=== PATIENT | female | born 1975 ===

== ENCOUNTER 2016-10-23 17:26 | Inpatient (IN) | payer OTHER ==
[2016-10-23] MEDS ORDERED: Sodium Chloride 0.9% 1,000 ML IV STA (18:29)
[2016-10-23] MEDS ORDERED: Iohexol 240 (50 ml) PO ONE (18:30)
--- NOTE | 2016-10-23 18:35 | ED PDOC ---
HPI: General Adult Time Seen by Provider: 10/23/16 18:20 Chief Complaint (Nursing): Fever History Per: Patient History/Exam Limitations: no limitations Onset/Duration Of Symptoms: Days (x 2) Have you had recent travel within the past 21 days to any of the following countries: [place], [place], [place] or [place]?: No Current Symptoms Are (Timing): Still Present Additional Complaint(s): Betty Blackburn is a 41 year old female, with no previous medical history, who presents to the ED with complaints of left flank pain ongoing for the past two days. Pt reports associated symptoms of body aches, coughing, nausea, lower abdominal pain and frequency in urination. Pt denies any chest pain, vomiting, leg pain, shortness of breath, dysuria or dyspnea. Pt states to self medicating with tylenol to alleviate the symptoms with the last dose being 12:00. Pt also states to having a "pelvic cyst". Pt denies any other medical complaints at this time. PMD: Dr. Villalba Past Medical History Reviewed: Historical Data, Nursing Documentation, Vital Signs Vital Signs: Last Vital Signs Temp 100.1 F H 10/23/16 18:30 Pulse 137 H 10/23/16 17:49 Resp 20 10/23/16 17:49 BP 136/95 H 10/23/16 17:49 Pulse Ox 100 10/23/16 18:57 - Medical History Other PMH: ovarian cyst - Family History Family History: States: Unknown Family Hx - Living Arrangements Living Arrangements: With Family - Home Medications Home Medications: Ambulatory Orders Medication Instructions Recorded No Known Home Med 10/23/16 - Allergies Allergies/Adverse Reactions: Allergies Allergy/AdvReac Type Severity Reaction Status Date / Time No Known Allergies Allergy Verified 10/23/16 17:49 Review of Systems ROS Statement: Except As Marked, All Systems Reviewed And Found Negative Constitutional: Positive for: Other (body aches) Cardiovascular: Negative for: Chest Pain Respiratory: Positive for: Cough. Negative for: Shortness of Breath, Other ( dyspnea) Gastrointestinal: Positive for: Nausea, Abdominal Pain (lower abdominal). Negative for: Vomiting, Diarrhea Genitourinary Female: Positive for: Frequency. Negative for: Dysuria Musculoskeletal: Positive for: Back Pain (left flank pain ). Negative for: Leg Pain Physical Exam - Reviewed Nursing Documentation Reviewed: Yes Vital Signs Reviewed: Yes - Physical Exam Appears: Positive for: Non-toxic, No Acute Distress Head Exam: Positive for: ATRAUMATIC, NORMAL INSPECTION, NORMOCEPHALIC Skin: Positive for: Normal Color, Warm, Dry Eye Exam: Positive for: Normal appearance, EOMI, PERRL ENT: Positive for: Normal ENT Inspection Cardiovascular/Chest: Positive for: Regular Rate, Rhythm, Tachycardia Respiratory: Positive for: Normal Breath Sounds. Negative for: Decreased Breath Sounds, Accessory Muscle Use, Crackles, Rales, Rhonchi, Wheezing, Respiratory Distress Gastrointestinal/Abdominal: Positive for: Bowel Sounds, Soft, Tenderness (LLQ). Negative for: Organomegaly, Mass, Distended, Guarding, Rebound Back: Positive for: L CVA Tenderness. Negative for: R CVA Tenderness, Vertebral Tenderness Extremity: Positive for: Normal ROM, Capillary Refill (< 2 seconds). Negative for: Tenderness, Pedal Edema, Calf Tenderness Neurologic/Psych: Positive for: Alert, Oriented - Laboratory Results Result Diagrams: 10/23/16 19:17 10/23/16 19:17 Interpretation Of Abn Labs: urine wbc 753; elevated blood wbc - ECG ECG: Positive for: Interpreted By Me, Viewed By Me ECG Rhythm: Positive for: Sinus Tachycardia O2 Sat by Pulse Oximetry: 100 (RA) Pulse Ox Interpretation: Normal - Radiology X-Ray: Interpreted by Me, Viewed By Me X-Ray Interpretation: No Acute Disease - Progress ED Course And Treament: 2335: Dr. Sy to take over care. Fu on CT. Getting antibiotics. Medical Decision Making Medical Decision Making: Initial Impression: URI R/O pylonephritis Initial plan: * VBG * CT Abd pelvis w/ PO & IV contrast * labs * magnesium * phosphorus * urine dipstick * urine * partial thromboplastin time * prothrombin time * CXR * IV NS 1,000 ml at 1,000 ml/hr * omnipaque * toradol * zofran * blood culture * urine culture * shovel logger * vital signs Q15 min * urinalysis * ED obs * reevaluation Scribe Attestation: Documented by Chitra Kline, acting as a scribe for Sandro Gunter MD. Provider Scribe Attestation: All medical record entries made by the Scribe were at my direction and personally dictated by me. I have reviewed the chart and agree that the record accurately reflects my personal performance of the history, physical exam, medical decision making, and the department course for this patient. I have also personally directed, reviewed, and agree with the discharge instructions and disposition. Disposition - Clinical Impression Clinical Impression: UTI (urinary tract infection) - Patient ED Disposition Is Patient to be Admitted: Transfer of Care - Disposition Disposition: Transfer of Care Disposition Time: 23:36 Condition: FAIR
[2016-10-23 19:21] LABS: BASO # 0.1 K/uL (0.0-0.2); BASO % 0.5 % (0.0-2.0); LYMPH # 1.7 K/uL (1.0-4.3); LYMPH % 12.3 % (20.0-40.0); MEAN CELL VOLUME 91.4 fl (81.0-99.0); MEAN CORPUSCULAR HEMOGLOBIN 30.2 pg (27.0-31.0); MEAN PLATELET VOLUME 9.2 fl (7.2-11.7); MONO # 1.4 K/uL (0.0-0.8); MONO % 9.8 % (0.0-10.0); NEUT % 77.4 % (50.0-75.0); RED CELL DISTRIBUTION WIDTH 13.3 % (11.5-14.5); WHITE BLOOD COUNT 14.2 K/uL (4.8-10.8)
[2016-10-23] MEDS ORDERED: Iohexol 240 (50 ml) ONE (19:25)
[2016-10-23 19:32] LABS: ALB/GLOB RATIO 1.1 (1.0-2.1); ALKALINE PHOSPHATASE 113 U/L (38-126); ALT/SGPT 23 U/L (9-52); AST/SGOT 36 U/L (14-36); BILIRUBIN,TOTAL 0.7 mg/dl (0.2-1.3); BLOOD UREA NITROGEN 9 mg/dl (7-17); CALCIUM 9.2 mg/dL (8.4-10.2); CARBON DIOXIDE 25 mmol/L (22-30); CHLORIDE 100 mmol/L (98-107); GFR AFRICAN-AMERICAN > 60; GLUCOSE,RANDOM 103 mg/dL (65-105); MAGNESIUM 2.1 MG/DL (1.6-2.3); PHOSPHOROUS 2.8 mg/dl (2.5-4.5); SODIUM 131 mmol/l (132-148); TOTAL PROTEIN 7.8 G/DL (6.3-8.2)
[2016-10-23 19:34] LABS: VENOUS BLOOD GAS BASE EXCESS 1.2 mmol/L (0.0-2.0); VENOUS BLOOD GAS PCO2 46 mmHg (40-60); VENOUS BLOOD PH 7.38 (7.32-7.43)
[2016-10-23 19:34] LABS: PARTIAL THROMBOPLASTIN TIME 31.9 SECONDS (23.3-32.5)
[2016-10-23 20:47] LABS: RBC URINE 1950 /hpf (0-3); URINE BACTERIA FEW (<OCC); URINE BILIRUBIN NEGATIVE (NEGATIVE); URINE BLOOD LARGE (NEGATIVE); URINE COLOR AMBER (YELLOW); URINE GLUCOSE (UA) NEG (Normal); URINE KETONE 80 mg/dL (NEGATIVE); URINE LEUKOCYTE ESTERASE MOD Leu/uL (Negative); URINE PROTEIN 100 mg/dL (NEGATIVE); URINE UROBILINOGEN 0.2-1.0 mg/dL (0.2-1.0); WBC URINE 753 /hpf (0-5)
[2016-10-23] MEDS ORDERED: Ciprofloxacin 400mg/200ml D5W 200 ML IVPB STA (22:42)
[2016-10-23] MEDS ORDERED: Sodium Chloride 0.9% 50 ML IV ONE (23:26)
[2016-10-23] MEDS ORDERED: Iohexol 300 100 ML IJ ONE (23:26)
--- NOTE | 2016-10-24 00:06 | ED PDOC ---
- Laboratory Results Result Diagrams: 10/23/16 19:17 10/23/16 19:17 - ECG O2 Sat by Pulse Oximetry: 100 (RA) Pulse Ox Interpretation: Normal Medical Decision Making Medical Decision Making: Receiving Sign Out: Patient signed out to me by Dr. Gunter pending CT follow up and final disposition. Scribe Attestation: Documented by Tigist Hall acting as a scribe for Anne Sy MD Provider Scribe Attestation: All medical record entries made by the Scribe were at my direction and personally dictated by me. I have reviewed the chart and agree that the record accurately reflects my personal performance of the history, physical exam, medical decision making, and the department course for this patient. I have also personally directed, reviewed, and agree with the discharge instructions and disposition. Disposition - Clinical Impression Clinical Impression: Pyelonephritis, Sepsis - POA Present On Arrival: None - Disposition Disposition: Hospitalized as Observation Patient Disposition Time: 18:30 Condition: SERIOUS ED OBSERVATION Date of observation admission: 10/23/16 Time of observation admission: 18:29 - Observation admission statement Patient is being placed in observation because:: Awaiting CT scan, bloodwork - Goals of Observation Goals of observation are:: CT results, lab results and final disposition - Progress Note Progress Note: 10/24/16 00:05 Pt endorsed to me by Dr. Gunter pending CT results and follow up. 10/24/16 00:54 CT AP IMPRESSION: Left pyelonephritis; cholecystectomy with segmental right intrahepatic biliary ductal dilatation, normal caliber common duct; 6 x 8 x 8 cm left adnexal cyst; basilar atelectasis; shotty adenopathy On reexamination, pt febrile with recurrence of flank pain. IVF and tylenol ordered. DW Dr Chapa for hospitalization DW pt findings and plan of care.
--- NOTE | 2016-10-24 00:21 | CT ---
EXAM: CT Abdomen and Pelvis With Intravenous Contrast. CLINICAL HISTORY: 41 years old, female; Pain; Abdominal pain; Flank; Right; Prior surgery; Surgery date: 6+ months; Surgery type: Appendectomy. Gall bladder removed; Additional info: Abd pain. Fever TECHNIQUE: Axial computed tomography images of the abdomen and pelvis with intravenous contrast. This CT exam was performed using one or more of the following dose reduction techniques: automated exposure control, adjustment of the mA and/or kV according to patient size, and/or use of iterative reconstruction technique. Coronal and sagittal reformatted images were created and reviewed. CONTRAST: 95 mL of [id number] administered intravenously. EXAM DATE/TIME: 10/23/2016 6:30 PM COMPARISON: There are no prior studies for comparison. FINDINGS: Lower thorax: Heart size is at the upper limits of normal. There is minimal dependent atelectasis at the lung bases. ABDOMEN: Liver: There is fatty infiltration of the liver. Gallbladder and bile ducts: Gallbladder is surgically absent. Common bile duct is unremarkable. There is intrahepatic biliary ductal dilatation in the posterior medial aspect of the right lobe of the liver. Pancreas: unremarkable Spleen: unremarkable Adrenals: unremarkable Kidneys and ureters: There is a low attenuation right renal lesion too small to characterize. Right kidney and ureter are otherwise unremarkable. There are patchy perfusion defects in the left kidney. There is mild left perinephric stranding. There is mild pelvo-ureterectasis. There is enhancement of left renal pelvic and ureteral mucosa. There are no renal or ureteral stones Stomach and bowel: Stomach is incompletely distended. Rotation is normal. Proximal small bowel loops are mildly distended with air-fluid levels. Distention decreases distally. There is no obstruction. Terminal ileum is unremarkable. Appendix is not visualized.Colon is incompletely distended which limits evaluation. Appendix: Appendectomy PELVIS: Bladder: Bladder is partially distended. Reproductive: Uterus and right adnexal structures are unremarkable. There is a 6.1 x 8.3 x 8.3 cm left adnexal cyst ABDOMEN and PELVIS: Intraperitoneal space: There is no free air. There is no significant fluid. Bones/joints: There are no acute osseous abnormalities Soft tissues: There is a fat-containing umbilical hernia. Vasculature: Vascular structures are unremarkable. Lymph nodes: There is shotty para-aortic adenopathy. IMPRESSION: Left pyelonephritis; cholecystectomy with segmental right intrahepatic biliary ductal dilatation, normal caliber common duct; 6 x 8 x 8 cm left adnexal cyst; basilar atelectasis; shotty adenopathy Additional findings as described above.
[2016-10-24] MEDS ORDERED: Ciprofloxacin 400mg/200ml D5W 0 ML IVPB ONE (01:15)
[2016-10-24] MEDS ORDERED: cefTRIAXone (Rocephin) 1 gm Inj ONE (01:22)
[2016-10-24] MEDS ORDERED: Sodium Chloride 0.9% 1,000 ML IV STA (03:54)
[2016-10-24] MEDS: Sodium Chloride 0.9% 1,000 ML IV SCH (05:30)
[2016-10-24 06:44] LABS: HEMATOCRIT 34.8 % (34.0-47.0); MEAN CELL VOLUME 91.9 fl (81.0-99.0); MEAN CORPUSCULAR HEMOGLOBIN 30.6 pg (27.0-31.0); MEAN CORPUSCULAR HGB CONC 33.3 g/dL (33.0-37.0); RED CELL DISTRIBUTION WIDTH 13.2 % (11.5-14.5)
[2016-10-24 07:04] LABS: ALKALINE PHOSPHATASE 98 U/L (38-126); ALT/SGPT 20 U/L (9-52); AST/SGOT 34 U/L (14-36); BILIRUBIN,TOTAL 0.4 mg/dl (0.2-1.3); BLOOD UREA NITROGEN 6 mg/dl (7-17); CALCIUM 8.1 mg/dL (8.4-10.2); CARBON DIOXIDE 25 mmol/L (22-30); CHLORIDE 105 mmol/L (98-107); CHOLESTEROL 150 mg/dL (0-199); GFR AFRICAN-AMERICAN > 60; GLUCOSE,RANDOM 120 mg/dL (65-105); POTASSIUM 3.2 MMOL/L (3.6-5.0); SODIUM 134 mmol/l (132-148); TOTAL PROTEIN 6.3 G/DL (6.3-8.2)
[2016-10-24 07:17] LABS: T4 5.95 ug/dl (5.5-11.0)
[2016-10-24 07:30] LABS: THYROID STIMULATING HORMONE 2.42 mIU/ML (0.46-4.68)
[2016-10-24] MEDS: Enoxaparin 40 mg Syringe SC SCH (09:06)
--- NOTE | 2016-10-24 11:52 | RAD ---
HISTORY: Sepsis Patient COMPARISON: No prior. FINDINGS: LUNGS: No active pulmonary disease. PLEURA: No significant pleural effusion identified, no pneumothorax apparent. CARDIOVASCULAR: Normal. OSSEOUS STRUCTURES: No significant abnormalities. VISUALIZED UPPER ABDOMEN: Normal. OTHER FINDINGS: None. IMPRESSION: Suboptimal study due to portable technique and patient's body habitus. No definite evidence of focal infiltrate or consolidation in the lungs.
[2016-10-24] MEDS ORDERED: Potassium Chloride 20 mEq ER Tab PO ONE (13:10)
--- NOTE | 2016-10-24 18:43 | HP ---
CHIEF COMPLAINT: Fever, back pain and urinary symptoms. HISTORY OF PRESENT ILLNESS: This is a 41-year-old female without significant past medical history wh o was having urinary symptoms, left flank pain and high fever associated with nausea, generalized mal aise, body aches. The patient was brought to Emergency Room and was found to have pyelonephritis and was admitted for further management. REVIEW OF SYSTEMS: Positive for fever, malaise, generalized weakness, back pain, flank pain, urinary frequency, urgency and burning. Review of systems otherwise is negative for headache, dizziness, sy ncope, loss of consciousness, chest pain, shortness of breath, nausea, vomiting, constipation, any ne w joint or extremity pain. Review of systems of all other organ systems is unremarkable. PAST MEDICAL HISTORY: Unremarkable. PAST SURGICAL HISTORY: Remarkable for ovarian cyst. PERSONAL HISTORY: The patient is currently a nonsmoker, nondrinker, no substance abuse. MEDICATIONS: The patient is not on any medications. ALLERGIES: The patient is not allergic to any medication. FAMILY HISTORY: Noncontributory. PHYSICAL EXAMINATION: GENERAL: Well-built, well-nourished, overweight 41-year-old female in no acute distress. VITAL SIGNS: Temperature 102.2, pulse 100, respirations 22, blood pressure 134/76, saturation 98%. HEENT: Pupils reacting to light. NECK: No JVD, no thyromegaly, no lymphadenopathy, no nystagmus. Normocephalic, atraumatic skull. HEART: S1, S2 normal, regular. No significant murmur, gallop or rub is heard. LUNGS: Shows good bilateral air exchange. No rales or rhonchi. ABDOMEN: Soft, nontender, no organomegaly, no fluid. Bowel sounds are plus. No sign of acute abdom en. No guarding, no rigidity, no rebound. Distinct flank tenderness. There is also suprapubic tend erness. EXTREMITIES: No edema, no calf swelling, no tenderness, no acute ischemia. CENTRAL NERVOUS SYSTEM: The patient is alert, awake, oriented x 3. There is no sign of any acute gr oss focal motor or sensory neurological deficit. DIAGNOSTIC DATA: Available diagnostic data reviewed. WBC of 14.2, hemoglobin 12.6, hematocrit 38.6, platelet 243. Venous blood gas shows pH 7.38, pO2 of 18, pCO2 of 46, sodium 131, potassium 4.0, chl oride 100, bicarbonate 25, BUN 9, creatinine 0.5. SMA-12 is unremarkable. Urinalysis is consistent with urinary tract infection. CAT scan of abdomen shows left pyelonephritis. EKG shows normal sinus rhythm without any acute ST-T changes. ADMITTING IMPRESSION: Acute left pyelonephritis, questionable sepsis, overweight. PLAN: As ordered. Case and plan discussed with patient. Marshall Chapa MD cc: [id number] TT: 10/24/2016 18:43:18 rn
--- NOTE | 2016-10-24 19:55 | CARD ---
APPROVED REPORT EKG Measurement Heart [id number] <Conclusion> Sinus tachycardia Possible Left atrial enlargement Borderline ECG
[2016-10-25] MEDS: Sodium Chloride 0.9% 1,000 ML IV SCH (01:26)
[2016-10-25 06:49] LABS: BASO # 0.1 K/uL (0.0-0.2); BASO % 0.7 % (0.0-2.0); EOS % 0.2 % (0.0-4.0); HEMATOCRIT 33.3 % (34.0-47.0); LYMPH # 1.6 K/uL (1.0-4.3); LYMPH % 18.6 % (20.0-40.0); MEAN CELL VOLUME 90.6 fl (81.0-99.0); MEAN CORPUSCULAR HEMOGLOBIN 31.1 pg (27.0-31.0); MEAN CORPUSCULAR HGB CONC 34.3 g/dL (33.0-37.0); MEAN PLATELET VOLUME 9.2 fl (7.2-11.7); MONO % 12.2 % (0.0-10.0); NEUT # 5.8 K/uL (1.8-7.0); NEUT % 68.3 % (50.0-75.0); NRBC % 0.1 % (0.0-0.0); WHITE BLOOD COUNT 8.6 K/uL (4.8-10.8)
[2016-10-25 07:22] LABS: BLOOD UREA NITROGEN 6 mg/dl (7-17); CALCIUM 8.4 mg/dL (8.4-10.2); CARBON DIOXIDE 23 mmol/L (22-30); CHLORIDE 105 mmol/L (98-107); GFR AFRICAN-AMERICAN > 60; GLUCOSE,RANDOM 103 mg/dL (65-105); SODIUM 133 mmol/l (132-148)
[2016-10-25] MEDS: Enoxaparin 40 mg Syringe SC SCH (08:31)
[2016-10-25] MEDS: Cefepime 1 GM in Sodium Chloride 0.9% 100 ML IVPB SCH ×2 (11:36→18:20)
--- NOTE | 2016-10-25 13:33 | CP.PCM.PN ---
Subjective - Date & Time of Evaluation Date of Evaluation: 10/25/16 Time of Evaluation: 08:40 - Subjective Subjective: pt seen and evaluated at bedside, doing better compared to when she first came to ED. does not have any complaints Objective - Vital Signs/Intake and Output Vital Signs (last 24 hours): Temp Pulse Resp BP Pulse Ox 98.9 F 91 H 20 106/69 96 10/25/16 09:29 10/25/16 08:10 10/25/16 08:10 10/25/16 08:10 10/25/16 08:10 - Medications Medications: Current Medications Acetaminophen (Tylenol 325mg Tab) 650 mg PO Q6 PRN PRN Reason: Pain, severe (8-10) Acetaminophen (Tylenol 325mg Tab) 650 mg PO Q6 PRN PRN Reason: Fever >100.4 F Last Admin: 10/25/16 08:29 Dose: 650 mg Enoxaparin Sodium (Lovenox) 40 mg SC DAILY FAUSTINO PRN Reason: Protocol Last Admin: 10/25/16 08:31 Dose: 40 mg Ceftriaxone Sodium 1 gm/ (Sodium Chloride) 100 mls @ 200 mls/hr IVPB Q12 FAUSTINO Last Admin: 10/25/16 08:30 Dose: 200 mls/hr Cefepime HCl 1 gm/ Sodium (Chloride) 100 mls @ 100 mls/hr IVPB BID FAUSTINO Last Admin: 10/25/16 11:36 Dose: 100 mls/hr Ibuprofen (Motrin Tab) 600 mg PO Q6 PRN PRN Reason: Pain, moderate (4-7) Last Admin: 10/24/16 14:27 Dose: 600 mg - Labs Labs: 10/25/16 05:45 10/25/16 05:45 PT 12.4 SECONDS (9.6-11.2) H 10/23/16 19:17 INR 1.19 (0.92-1.08) H 10/23/16 19:17 APTT 31.9 SECONDS (23.3-32.5) 10/23/16 19:17 - Constitutional Appears: Non-toxic, No Acute Distress - Eye Exam Eye Exam: Normal appearance - Respiratory Exam Respiratory Exam: Clear to Ausculation Bilateral, NORMAL BREATHING PATTERN - Cardiovascular Exam Cardiovascular Exam: REGULAR RHYTHM, +S1, +S2 - GI/Abdominal Exam GI & Abdominal Exam: Soft, Normal Bowel Sounds - Extremities Exam Extremities Exam: Full ROM - Back Exam Back Exam: CVA tenderness (L) - Neurological Exam Neurological Exam: Alert, Awake, CN II-XII Intact Assessment and Plan - Assessment and Plan (Free Text) Assessment: 41 y/o female admitted for sepsis due to phlonephritis Plan: Sepsis due to Pylonephritis ID consulted' continue antibiotics pain medications as ordered diet- Regular DVT prophylaxis- Lovenox SC
[2016-10-26] MEDS: Cefepime 1 GM in Sodium Chloride 0.9% 100 ML IVPB SCH ×2 (08:39→16:34)
[2016-10-26] MEDS: Enoxaparin 40 mg Syringe SC SCH (08:43)
--- NOTE | 2016-10-26 13:24 | CP.PCM.CON ---
History of Present Illness - History of Present Illness History of Present Illness: 41 year old female, with no previous medical history, who presents to the ED with complaints of left flank pain ongoing for the past two days. Pt reports associated symptoms of body aches, coughing, nausea, lower abdominal pain and frequency in urination. Pt denies any chest pain, vomiting, leg pain, shortness of breath, dysuria or dyspnea. Pt states to self medicating with tylenol to alleviate the symptoms with the last dose being 12:00. Pt also states to having a "pelvic cyst". Pt denies any other medical complaints at this time. Review of Systems - Constitutional Constitutional: Fever, Malaise - EENT Eyes: absent: As Per HPI, Blind Spots, Blurred Vision, Change in Vision, Decreased Night Vision, Diplopia, Discharge, Dry Eye, Exophthalmos, Floaters, Irritation, Itchy Eyes, Loss of Peripheral Vision, Pain, Photophobia, Requires Corrective Lenses, Sees Flashes, Spots in Vision, Tunnel Vision, Other Visual Disturbances, Loss of Vision, Other Ears: absent: As Per HPI, Decreased Hearing, Ear Discharge, Ear Pain, Tinnitus, Abnormal Hearing, Disequilibrium, Dizziness, Other Nose/Mouth/Throat: absent: As Per HPI, Epistaxis, Nasal Congestion, Nasal Discharge, Nasal Obstruction, Nasal Trauma, Nose Pain, Post Nasal Drip, Sinus Pain, Sinus Pressure, Bleeding Gums, Change in Voice, Dental Pain, Dry Mouth, Dysphagia, Halitosis, Hoarsness, Lip Swelling, Mouth Lesions, Mouth Pain, Odynophagia, Sore Throat, Throat Swelling, Tongue Swelling, Facial Pain, Neck Pain, Neck Mass, Other - Breasts Breasts: absent: As Per HPI, Change in Shape, Mass, Pain, Nipple Discharge, Nipple Inversion, Skin Changes, Swelling, Other - Cardiovascular Cardiovascular: absent: As Per HPI, Acrocyanosis, Chest Pain, Chest Pain at Rest , Chest Pain with Activity, Claudication, Diaphoresis, Dyspnea, Dyspnea on Exertion, Edema, Irregular Heart Rhythm, Pain Radiating to Arm/Neck/Jaw, Leg Edema, Leg Ulcers, Lightheadedness, Orthopnea, Palpitations, Paroxysmal Nocturnal Dyspnea, Pedal Edema, Radiating Pain, Rapid Heart Rate, Slow Heart Rate, Syncope, Other - Gastrointestinal Gastrointestinal: absent: As Per HPI, Abdominal Pain, Belching, Bloating, Change in Bowel Habits, Change in Stool Character, Coffee Ground Emesis, Constipation, Cramping, Diarrhea, Dyspepsia, Dysphagia, Early Satiety, Excessive Flatus, Fecal Incontinence, Heartburn, Hematemesis, Hematochezia, Loose Stools, Melena, Nausea, Odynophagia, Temesmus, Vomiting, Other - Genitourinary Genitourinary: As Per HPI - Reproductive: Female Reproductive:Female: absent: As Per HPI, Amenorrhea, Amenorrhea/ Control, Currently Menstual, Cycle <21 Days, Cycle >35 Days, Cycle Variable, Menses 1-7 Days, Menses >/= 8 Days, Menses Variable, Cycle > 4 Weeks Between, No Menses for 6 Months, Heavy Menses, Light Menses, Normal Menses, Spotting Between Cycles , S/P Hysterectomy, Menopausal, Post Menopausal, Premenarche, Abnormal Vaginal Bleeding, Dysmenorrhea, Dyspareunia, Genital Lesions, Genital Pruritis, Pelvic Pain, Prolapse Symptoms, Sexual Dysfunction, Vaginal Discharge, Vaginal Dryness , Vaginal Odor, Vaginal Pruritis, Other - Menstruation Menstruation: absent: As Per HPI, Amenorrhea, Amenorrhea/ Control, Currently Menstual, Cycle <21 Days, Cycle >35 Days, Cycle Variable, Menses 1-7 Days, Menses >/= 8 Days, Menses Variable, Cycle > 4 Weeks Between, No Menses for 6 Months, Heavy Menses, Light Menses, Normal Menses, Spotting Between Cycles , S/P Hysterectomy, Menopausal, Post Menopausal, Premenarche, Abnormal Vaginal Bleeding, Dysmenorrhea, Other - Musculoskeletal Musculoskeletal: absent: As Per HPI, Abnormal Gait, Arthralgias, Atrophy, Back Pain, Deformity, Joint Swelling, Limited Range of Motion, Loss of Height, Muscle Cramps, Muscle Weakness, Myalgias, Neck Pain, Numbness, Radiating Pain into Limb, Stiffness, Tingling, Other - Integumentary Integumentary: absent: As Per HPI, Acne, Alopecia, Bleeding Lesions, Change in Hair, Change in Nails, Change in Pigmentation, Changing Lesions, Dry Skin, Erythema, Furuncle, Hirsutism, Lesions, New Lesions, Non-Healing Lesions, Photosensitivity, Pruritus, Rash, Skin Pain, Skin Ulcer, Sores, Striae, Swelling , Unusual Bruising, Wounds, Jaundice, Other - Neurological Neurological: absent: As Per HPI, Abnormal Gait, Abnormal Hearing, Abnormal Movements, Abnormal Speech, Behavioral Changes, Burning Sensations, Confusion, Convulsions, Disequilibrium, Dizziness, Numbness, Focal Weakness, Frequent Falls , Headaches, Lack of Coordination, Loss of Vision, Memory Loss, Paresthesias, Radicular Pain, Restless Legs, Sensory Deficit, Syncope, Tingling, Tremor, Vertigo, Weakness, Other Visual Disturbances, Other - Psychiatric Psychiatric: absent: As Per HPI, Abnormal Sleep Pattern, Anhedonia, Anxiety, Auditory Hallucinations, Behavioral Changes, Change in Appetite, Change in Libido, Confusion, Depression, Difficulty Concentrating, Hallucinations, Homicidal Ideation, Hopelessness, Irritability, Memory Loss, Mood Swings, Panic Attacks, Paranoia, Suicidal Ideation, Visual Hallucinations, Tactile Hallucinations, Other - Endocrine Endocrine: absent: As Per HPI, Change in Body Appearance, Change in Libido, Cold Intolorance, Deepening of Voice, Excessive Sweating, Fatigue, Flushing, Heat Intolorance, Increase in Ring/Shoe/Hat Size, Palpitations, Polydipsia, Polyphagia, Polyuria, Other - Hematologic/Lymphatic Hematologic: absent: As Per HPI, Easy Bleeding, Easy Bruising, Lymphadenopathy, Other Past Patient History - Past Medical History & Family History Past Medical History?: Yes - Past Social History Smoking Status: Never Smoked - CARDIAC Hx Cardiac Disorders: No - PULMONARY Hx Respiratory Disorders: No - NEUROLOGICAL Hx Neurological Disorder: No - HEENT Hx HEENT Problems: No - RENAL Hx Chronic Kidney Disease: No - ENDOCRINE/METABOLIC Hx Endocrine Disorders: No - HEMATOLOGICAL/ONCOLOGICAL Hx Blood Disorders: No - INTEGUMENTARY Hx Dermatological Problems: No - MUSCULOSKELETAL/RHEUMATOLOGICAL Hx Musculoskeletal Disorders: No Hx Falls: No - GASTROINTESTINAL Hx Gastrointestinal Disorders: No - GENITOURINARY/GYNECOLOGICAL Hx Genitourinary Disorders: No - PSYCHIATRIC Hx Psychophysiologic Disorder: No Hx Substance Use: No - SURGICAL HISTORY Hx Surgeries: Yes Other/Comment: Pelvic cyst - months ago - ANESTHESIA Hx Anesthesia: Yes Hx Anesthesia Reactions: No Hx Malignant Hyperthermia: No Has any member of the family had a problem w/ anesthesia?: No Meds Allergies/Adverse Reactions: Allergies Allergy/AdvReac Type Severity Reaction Status Date / Time No Known Allergies Allergy Verified 10/23/16 17:49 - Medications Medications: Current Medications Acetaminophen (Tylenol 325mg Tab) 650 mg PO Q6 PRN PRN Reason: Pain, severe (8-10) Last Admin: 10/25/16 17:13 Dose: 650 mg Acetaminophen (Tylenol 325mg Tab) 650 mg PO Q6 PRN PRN Reason: Fever >100.4 F Last Admin: 10/25/16 08:29 Dose: 650 mg Enoxaparin Sodium (Lovenox) 40 mg SC DAILY FAUSTINO PRN Reason: Protocol Last Admin: 10/26/16 08:43 Dose: 40 mg Cefepime HCl 1 gm/ Sodium (Chloride) 100 mls @ 100 mls/hr IVPB BID FAUSTINO Last Admin: 10/26/16 08:39 Dose: 100 mls/hr Ibuprofen (Motrin Tab) 600 mg PO Q6 PRN PRN Reason: Pain, moderate (4-7) Last Admin: 10/24/16 14:27 Dose: 600 mg Physical Exam - Constitutional Appears: Non-toxic, Chronically Ill - Head Exam Head Exam: ATRAUMATIC, NORMAL INSPECTION, NORMOCEPHALIC - Eye Exam Eye Exam: PERRL. absent: Scleral icterus - ENT Exam ENT Exam: Mucous Membranes Dry, Normal External Ear Exam - Neck Exam Neck exam: Negative for: Lymphadenopathy - Respiratory Exam Respiratory Exam: Decreased Breath Sounds, Clear to Auscultation Bilateral - Cardiovascular Exam Cardiovascular Exam: REGULAR RHYTHM, +S1, +S2 - GI/Abdominal Exam GI & Abdominal Exam: Diminished Bowel Sounds, Soft. absent: Tenderness - Rectal Exam Rectal Exam: Deferred - Exam Exam: NORMAL INSPECTION - Extremities Exam Extremities exam: Positive for: pedal pulses present. Negative for: calf tenderness, pedal edema, tenderness - Back Exam Back exam: CVA tenderness (L). absent: CVA tenderness (R), paraspinal tenderness - Neurological Exam Neurological exam: Alert, CN II-XII Intact, Oriented x3, Reflexes Normal - Psychiatric Exam Psychiatric exam: Normal Mood - Skin Skin Exam: Dry, Intact Results - Vital Signs Recent Vital Signs: Last Vital Signs Temp 98.6 F 10/26/16 08:16 Pulse 82 10/26/16 08:16 Resp 20 10/26/16 08:16 BP 118/83 10/26/16 08:16 Pulse Ox 98 10/26/16 08:16 - Labs Result Diagrams: 10/25/16 05:45 10/25/16 05:45 Assessment & Plan (1) Pyelonephritis Status: Acute (2) Sepsis Status: Acute (3) UTI (urinary tract infection) Status: Removed - Assessment and Plan (Free Text) Assessment: PYELO WITH E COLI CONT IV THEN PO RX FOR 2-3 WEEKS
--- NOTE | 2016-10-26 16:15 | CP.PCM.PN ---
Subjective - Date & Time of Evaluation Date of Evaluation: 10/26/16 Time of Evaluation: 09:00 - Subjective Subjective: pt seen and evaluated today complains about having a headache and feeling warm even though its cold but did not have any fever recorded in vitals. denies any abdominal pain, diarrhea, dysuria has improved. Doing better than previous days. Objective - Vital Signs/Intake and Output Vital Signs (last 24 hours): Temp Pulse Resp BP Pulse Ox 98.6 F 82 20 118/83 98 10/26/16 08:16 10/26/16 08:16 10/26/16 08:16 10/26/16 08:16 10/26/16 08:16 - Medications Medications: Current Medications Acetaminophen (Tylenol 325mg Tab) 650 mg PO Q6 PRN PRN Reason: Pain, severe (8-10) Last Admin: 10/25/16 17:13 Dose: 650 mg Acetaminophen (Tylenol 325mg Tab) 650 mg PO Q6 PRN PRN Reason: Fever >100.4 F Last Admin: 10/25/16 08:29 Dose: 650 mg Enoxaparin Sodium (Lovenox) 40 mg SC DAILY [facility] PRN Reason: Protocol Last Admin: 10/26/16 08:43 Dose: 40 mg Cefepime HCl 1 gm/ Sodium (Chloride) 100 mls @ 100 mls/hr IVPB BID [facility] Last Admin: 10/26/16 08:39 Dose: 100 mls/hr Ibuprofen (Motrin Tab) 600 mg PO Q6 PRN PRN Reason: Pain, moderate (4-7) Last Admin: 10/24/16 14:27 Dose: 600 mg - Labs Labs: 10/25/16 05:45 10/25/16 05:45 PT 12.4 SECONDS (9.6-11.2) H 10/23/16 19:17 INR 1.19 (0.92-1.08) H 10/23/16 19:17 APTT 31.9 SECONDS (23.3-32.5) 10/23/16 19:17 - Constitutional Appears: Non-toxic, No Acute Distress - Head Exam Head Exam: NORMOCEPHALIC - Eye Exam Eye Exam: Normal appearance, PERRL Pupil Exam: NORMAL ACCOMODATION - ENT Exam ENT Exam: Mucous Membranes Moist - Respiratory Exam Respiratory Exam: Clear to Ausculation Bilateral, NORMAL BREATHING PATTERN. absent: Rhonchi, Wheezes - Cardiovascular Exam Cardiovascular Exam: REGULAR RHYTHM, +S1, +S2 - GI/Abdominal Exam GI & Abdominal Exam: Soft, Normal Bowel Sounds. absent: Tenderness - Extremities Exam Extremities Exam: Normal Inspection. absent: Calf Tenderness - Back Exam Back Exam: NORMAL INSPECTION. absent: CVA tenderness (L), CVA tenderness (R), paraspinal tenderness - Neurological Exam Neurological Exam: Alert, Awake, CN II-XII Intact, Oriented x3 Assessment and Plan - Assessment and Plan (Free Text) Assessment: 41 y/o female admitted for sepsis due to pyelonephritis Plan: Sepsis due to Pyelonephritis ID recomendations appreciated continue antibiotics pain medications as ordered diet- Regular DVT prophylaxis- Lovenox SC
[2016-10-27 06:24] LABS: BASO % 0.6 % (0.0-2.0); EOS # 0.1 K/uL (0.0-0.7); EOS % 1.3 % (0.0-4.0); HEMATOCRIT 37.9 % (34.0-47.0); LYMPH # 1.8 K/uL (1.0-4.3); LYMPH % 30.8 % (20.0-40.0); MEAN CELL VOLUME 91.5 fl (81.0-99.0); MEAN CORPUSCULAR HEMOGLOBIN 30.7 pg (27.0-31.0); MEAN CORPUSCULAR HGB CONC 33.5 g/dL (33.0-37.0); MEAN PLATELET VOLUME 8.6 fl (7.2-11.7); MONO # 1.4 K/uL (0.0-0.8); MONO % 22.9 % (0.0-10.0); NEUT # 2.6 K/uL (1.8-7.0); NEUT % 44.4 % (50.0-75.0); NRBC % 0.2 % (0.0-0.0); PLATELET COUNT 313 K/uL (130-400); RED CELL DISTRIBUTION WIDTH 13.3 % (11.5-14.5); WHITE BLOOD COUNT 5.9 K/uL (4.8-10.8)
[2016-10-27 06:35] LABS: CHLORIDE 99 mmol/L (98-107); SODIUM 137 mmol/l (132-148)
[2016-10-27 06:36] LABS: POTASSIUM 4.1 MMOL/L (3.6-5.0)
[2016-10-27 06:38] LABS: CARBON DIOXIDE 29 mmol/L (22-30); GFR AFRICAN-AMERICAN > 60
[2016-10-27 06:39] LABS: BLOOD UREA NITROGEN 7 mg/dl (7-17); GLUCOSE,RANDOM 102 mg/dL (65-105)
[2016-10-27] MEDS: Cefepime 1 GM in Sodium Chloride 0.9% 100 ML IVPB SCH (08:53)
[2016-10-27] MEDS: Enoxaparin 40 mg Syringe SC SCH ×2 (08:53→09:00)
[2016-10-27 10:34] LABS: EOSINOPHIL 2 % (0-7); NEUTROPHIL 42 % (42-75); REACTIVE LYMPHOCYTES 8 % (0-0); TOTAL CELLS COUNTED 100
--- NOTE | 2016-10-27 12:12 | CP.PCM.DIS ---
Provider - Provider Date of Admission: 10/24/16 12:58 Attending physician: Marshall Chapa MD Primary care physician: Dr. Larkin Consults: ID Time Spent in preparation of Discharge (in minutes): 30 Diagnosis - Discharge Diagnosis (1) Pyelonephritis Status: Acute Hospital Course - Lab Results Lab Results: Most Recent Lab Values WBC 5.9 K/uL (4.8-10.8) 10/27/16 06:00 RBC 4.14 Mil/uL (3.80-5.20) 10/27/16 06:00 Hgb 12.7 g/dL (12.0-16.0) 10/27/16 06:00 Hct 37.9 % (34.0-47.0) 10/27/16 06:00 MCV 91.5 fl (81.0-99.0) 10/27/16 06:00 MCH 30.7 pg (27.0-31.0) 10/27/16 06:00 MCHC 33.5 g/dL (33.0-37.0) 10/27/16 06:00 RDW 13.3 % (11.5-14.5) 10/27/16 06:00 Plt Count 313 K/uL (130-400) 10/27/16 06:00 MPV 8.6 fl (7.2-11.7) 10/27/16 06:00 Neut % (Auto) 44.4 % (50.0-75.0) L 10/27/16 06:00 Lymph % (Auto) 30.8 % (20.0-40.0) 10/27/16 06:00 [place] % (Auto) 22.9 % (0.0-10.0) H 10/27/16 06:00 Eos % (Auto) 1.3 % (0.0-4.0) 10/27/16 06:00 Baso % (Auto) 0.6 % (0.0-2.0) 10/27/16 06:00 Neut # 2.6 K/uL (1.8-7.0) 10/27/16 06:00 Lymph # 1.8 K/uL (1.0-4.3) 10/27/16 06:00 [place] # 1.4 K/uL (0.0-0.8) H 03/16/17 06:00 Eos # 0.1 K/uL (0.0-0.7) 10/27/16 06:00 Baso # 0.0 K/uL (0.0-0.2) 10/27/16 06:00 Neutrophils % (Manual) 42 % (42-75) 10/27/16 06:00 Band Neutrophils % 2 % (0-2) 10/27/16 06:00 Lymphocytes % (Manual) 30 % (20-50) 10/27/16 06:00 Reactive Lymphs % 8 % (0-0) H 10/27/16 06:00 Monocytes % (Manual) 16 % (0-10) H 10/27/16 06:00 Eosinophils % (Manual) 2 % (0-7) 10/27/16 06:00 Platelet Estimate Normal (NORMAL) 10/27/16 06:00 RBC Morphology Normal (NORMAL) 10/27/16 06:00 PT 12.4 SECONDS (9.6-11.2) H 10/23/16 19: INR 1.19 (0.92-1.08) H 10/23/16 19: APTT 31.9 SECONDS (23.3-32.5) 10/23/16 19: pO2 18 mm/Hg (30-55) L 10/23/16 19: VBG pH 7.38 (7.32-7.43) 10/23/16 19:29 VBG pCO2 46 mmHg (40-60) 10/23/16 19:29 VBG HCO3 23.1 mmol/L 10/23/16 19:29 VBG Total CO2 28.6 mmol/L (22-28) H 10/23/16 19:29 VBG O2 Sat (Calc) 26.6 % (40-65) L 10/23/16 19:29 VBG Base Excess 1.2 mmol/L (0.0-2.0) 10/23/16 19: VBG Potassium 4.0 mmol/L (3.6-5.2) 10/23/16 19:29 Sodium 134.0 mmol/L (132-148) 10/23/16 19: Chloride 100.0 mmol/L (98-107) 10/23/16 19: Glucose 103 mg/dL (65-105) 10/23/16 19:29 Lactate 1.0 mmol/L (0.7-2.1) 10/23/16 19:29 FiO2 21.0 % 10/23/16 19:29 Sodium 137 mmol/l (132-148) 10/27/16 06:00 Potassium 4.1 MMOL/L (3.6-5.0) 10/27/16 06:00 Chloride 99 mmol/L (98-107) 10/27/16 06:00 Carbon Dioxide 29 mmol/L (22-30) 10/27/16 06:00 Anion Gap 13 (10-20) 10/27/16 06:00 BUN 7 mg/dl (7-17) 10/27/16 06:00 Creatinine 0.5 mg/dL (0.7-1.2) L 10/27/16 06:00 Est GFR ( Amer) > 60 10/27/16 06:00 Est GFR (Non-Af Amer) > 60 10/27/16 06:00 Random Glucose 102 mg/dL (65-105) 10/27/16 06:00 Calcium 9.0 mg/dL (8.4-10.2) 10/27/16 06:00 Phosphorus 2.8 mg/dl (2.5-4.5) 10/23/16 19:17 Magnesium 2.1 MG/DL (1.6-2.3) 10/23/16 19:17 Total Bilirubin 0.4 mg/dl (0.2-1.3) 10/24/16 06:20 AST 34 U/L (14-36) 10/24/16 06:20 ALT 20 U/L (9-52) 10/24/16 06:20 Alkaline Phosphatase 98 U/L (38-126) 10/24/16 06:20 Total Protein 6.3 G/DL (6.3-8.2) 10/24/16 06:20 Albumin 3.1 g/dL (3.5-5.0) L D 10/24/16 06:20 Globulin 3.2 gm/dL (2.2-3.9) 10/24/16 06:20 Albumin/Globulin Ratio 1.0 (1.0-2.1) 10/24/16 06:20 Triglycerides 99 mg/DL (0-149) 10/24/16 06:20 Cholesterol 150 mg/dL (0-199) 10/24/16 06:20 LDL Cholesterol Direct 83 mg/dL (0-129) 10/24/16 06:20 HDL Cholesterol 38 MG/DL (30-70) 10/24/16 06:20 Vitamin B12 246 pg/mL (239-931) 10/24/16 06:20 Thyroxine (T4) 5.95 ug/dl (5.5-11.0) 10/24/16 06:20 TSH 3rd Generation 2.42 mIU/ML (0.46-4.68) 10/24/16 06:20 Venous Blood Potassium 4.0 mmol/L (3.6-5.2) 10/23/16 19:29 Urine Color [place] (YELLOW) 10/23/16 18:49 Urine Clarity Cloudy (Clear) 10/23/16 18:49 Urine pH 5.0 (5.0-8.0) 10/23/16 18:49 Ur Specific [place] 1.024 (1.003-1.030) 10/23/16 18:49 Urine Protein 100 mg/dL (NEGATIVE) 10/23/16 18:49 Urine Glucose (UA) Neg mg/dL (Normal) 10/23/16 18:49 Urine Ketones 80 mg/dL (NEGATIVE) 10/23/16 18:49 Urine Blood Large (NEGATIVE) 10/23/16 18:49 Urine Nitrate Negative (NEGATIVE) 10/23/16 18:49 Urine Bilirubin Negative (NEGATIVE) 10/23/16 18:49 Urine Urobilinogen 0.2-1.0 mg/dL (0.2-1.0) 10/23/16 18:49 Ur Leukocyte Esterase Mod [place]ega/uL (Negative) 10/23/16 18:49 Urine RBC (Auto) 1950 /hpf (0-3) H 10/23/16 18:49 Urine Microscopic WBC 753 /hpf (0-5) H 10/23/16 18:49 Ur Squamous Epith Cells 16 /hpf (0-5) H 10/23/16 18:49 Urine Bacteria Few (<OCC) H 10/23/16 18:49 - Hospital Course Hospital Course: Pt was admitted for sepsis due to pyelonephritis, was started on antibiotics spiked a fever on day but has been afebrile for 48hrs going home to completed 2- 3weeks of antibiotic; with strict instructions to follow up with PCP to decided on final length of antibiotic therapy Discharge Exam - Head Exam Head Exam: NORMOCEPHALIC - Eye Exam Eye Exam: Normal appearance, PERRL Pupil Exam: NORMAL ACCOMODATION - ENT Exam ENT Exam: Mucous Membranes Moist - Respiratory Exam Respiratory Exam: NORMAL BREATHING PATTERN - GI/Abdominal Exam GI & Abdominal Exam: Normal Bowel Sounds, Soft - Extremities Exam Extremities exam: normal inspection - Neurological Exam Neurological exam: Alert, CN II-XII Intact, Oriented x3 - Psychiatric Exam Psychiatric exam: Normal Affect - Skin Skin Exam: Normal Color Discharge Plan - Discharge Medications Prescriptions: Amoxicillin/Clavulanate [Augmentin 875 MG-125 MG] 1 tab PO Q12 14 Days - Follow Up Plan Condition: SERIOUS Disposition: HOME/ ROUTINE Instructions: Urinary Tract Infection in Women (GEN), Acute Pyelonephritis (GEN ) Additional Instructions: Please follow up with your PCP Dr. angel fin 1-2weeks for re-evaluation Referrals: Binh Villalba MD [Medical Doctor] -
[2016-10-27 16:12] VITALS: BP 118/89; PULSE 82; RESP 18; TEMP 98; O2SAT 98
== END 2016-10-27 16:30 | disposition home or self-care (01) | DRG 901 ==
LOC: H.ER 17:26 → H.ERHOLD 18:29 → UNDOADMOB 18:29 → H.EROBSV 18:29 → H.MEDSURG1 10-24 04:57 → OBSVTOIN 10-24 12:58
PROVIDERS: ADMIT Internal Medicine; ATTEND Internal Medicine
DX: A41.89 Other specified sepsis (principal); N10 Acute pyelonephritis; N39.0 Urinary tract infection, site not specified; B96.20 Unspecified Escherichia coli [E. coli] as the cause of diseases classified elsewhere; E66.3 Overweight